=== PATIENT | male | born 1950 | race Caucasian/White ===

== ENCOUNTER → 2024-12-17 | Outpatient (CLI) | payer OTHER, SELFPAY ==
--- NOTE | 2024-12-17 16:30 | XR_ITS ---
MRI shoulder, right, without contrast. Date and time: December 17, 2024 1627 hours INDICATIONS: Right shoulder pain and decreased range of motion joint clicking 18 months after lifting injury Technique: Multiple axial, sagittal and coronal sections of the shoulder have been obtained. Siemens high-resolution 1.5 Alison MRI scanner is utilized. Axial fat-suppressed sections, TR 2350, TE 18 T2-weighted coronal fat-saturated images, TR 3500, TE 7100 T1-weighted coronal images, TR 500, TE 15 T2-weighted sagittal fat-saturated images, TR 3500, TE 57 T1-weighted sagittal sections, TR 504, TE 13. Findings: Supraspinatus tendon insertion is abnormal, 8 mm full-thickness tear. Infraspinatus tendon insertion is intact. Subscapularis insertion is intact. Subscapularis bursa is not seen. Long head of the biceps is in the bicipital groove. No definite tear of the biceps superior labral anchor is seen. Retraction of the musculotendinous junction of the rotator cuff is not significant. Tendinosis pattern is prominent. Distance between the acromium and humeral head is 7.9 mm Atrophy of the supraspinatus muscle is mild . Atrophy of the infraspinatus muscle is mild. Sagittal sections demonstrate a horizontal acromion. Acromioclavicular joint demonstrates moderate osteoarthritis. Osacromiale is not identified. Moderate osteoarthritis glenohumeral joint Fraying and irregularity anterior superior labral margins. Bony glenoid fossa on the sagittal sections does not demonstrate osseous defect. Occult fracture or area of avascular necrosis is not seen. Acromioclavicular joint separation is not visible. Defect in the posterolateral margin of the humeral head is not seen Impression: 8 mm full-thickness tear supraspinatus Prominent rotator cuff tendinosis Fraying and irregularity anterior superior labral margins
== END | disposition home or self-care (01) ==
PROVIDERS: PCP Family Medicine; Referring Provider Family Medicine; Visit Provider Family Medicine
DX: S46.011A Strain of muscle(s) and tendon(s) of the rotator cuff of right shoulder, initial encounter (principal); X58.XXXA Exposure to other specified factors, initial encounter; M67.813 Other specified disorders of tendon, right shoulder; M25.811 Other specified joint disorders, right shoulder
CPT/HCPCS: 73221

== ENCOUNTER → 2025-05-24 | Outpatient (CLI) | payer MEDICARE, SELFPAY ==
[2025-05-24 08:37] LABS: Basophils # (Auto) 0.1 Thou/mm3 (0.0-0.2); Basophils % (Auto) 1 % (0-2.5); Eosinophils # (Auto) 0.2 Thou/mm3 (0.0-0.5); Eosinophils % (Auto) 3 % (0-10); Hematocrit 46.7 % (41.0-53.0); Hemoglobin 15.5 g/dL (13.5-16.0); Immature Granulocytes Auto 0.02 Thou/mm3 (0.00-0.00); Lymphocytes # (Auto) 2.3 Thou/mm3 (1.0-4.8); Lymphocytes % (Auto) 28 % (10-50); Mean Corpuscular HGB Conc 33.2 g/dl (31.0-37.0); Mean Corpuscular Hemoglobin 30.2 pg (25.0-35.0); Mean Corpuscular Volume 91 fL (80-100); Monocytes # (Auto) 0.7 Thou/mm3 (0.0-0.8); Monocytes % (Auto) 9 % (0-12); Neutrophils # (Auto) 4.8 Thou/mm3 (1.8-7.7); Neutrophils % (Auto) 59 % (37-80); Nucleated Red Blood Cell # 0.00 Thou/mm3 (0.00-0.00); Nucleated Red Blood Cell % 0 /100 WBC (0); Platelet Count 164 Thou/mm3 (140-440); RDW Standard Deviation 45.1 fL (35.1-43.9); Red Blood Count 5.13 Miln/mm3 (4.50-5.90); White Blood Count 8.0 Thou/mm3 (3.8-10.6)
[2025-05-24 08:54] LABS: Prostate Specific Antigen 0.76 ng/mL (0-4.00)
[2025-05-24 08:55] LABS: Parathyroid Hormone Intact 91.7 pg/ml (18.5-88.0)
[2025-05-24 09:00] LABS: Vitamin B12 359 pg/mL (211-911); Vitamin D 25 Hydroxy Total 39.2 ng/mL (7.3-40.2)
[2025-05-24 09:04] LABS: Glucose Estimated Average 126 mg/dL (80-131); Hemoglobin A1C 6.0 % Hgb (4.8-6.0)
[2025-05-24 09:06] LABS: Alanine Aminotransferase 24 U/L (10-49); Albumin, Serum 4.7 gm/dL (3.4-4.8); Anion Gap 10 (7-16); Aspartate Amino Transferase 32 U/L (0-34); BUN/Creatinine Ratio 16 Ratio (12-20); Bilirubin,Total 0.5 mg/dL (0.3-1.2); Blood Urea Nitrogen 16 mg/dL (9-23); Calcium 9.9 mg/dL (8.3-10.6); Calcium (Corrected) 9.9 mg/dL (8.5-10.1); Carbon Dioxide 26.6 mMol/L (20.0-31.0); Chloride 106 mMol/L (98-107); Creatinine (Component) 1.0 mg/dL (0.6-1.3); Globulin 2.1 gm/dL (2.3-3.5); Glucose 103 mg/dL (74-106); Osmolality,Calculated 286 (275-295); Potassium 4.7 mMol/L (3.4-5.1); Sodium 143 mMol/L (136-145); Total Protein 6.8 gm/dL (5.7-8.2); eGFR > 60 See Note
[2025-05-24 09:07] LABS: Collection Type, Urine Clean Catch
[2025-05-24 09:07] LABS: Albumin/Globulin Ratio 2.2 (1.2-2.2); Alkaline Phosphatase 79 U/L (46-116); Cardiac Risk Estimate 6.0 RATIO (4.0-6.7); Cholesterol 222 mg/dL (132-200); HDL Cholesterol 37 mg/dL (40-60); LDL Cholesterol,Calculated 141 mg/dL (0-130); Thyroid Stimulating Hormone 3.60 uIU/mL (0.55-4.78); Triglycerides 218 mg/dL (30-150)
[2025-05-24 09:48] LABS: Bilirubin,Urine Negative (Negative); Blood,Urine Negative (Negative); Clarity,Urine Clear (Clear/Hazy); Color,Urine Lt-Yellow (Lt Yel-Yel); Culture Indicated,Urine Not Indicated; Glucose, Urine Negative (Negative); Ketones,Urine Negative (Negative); Leukocyte Esterase,Urine Negative (Negative); Nitrite,Urine Negative (Negative); PH,Urine 6.5 (5.0-7.0); Protein,Urine Negative (Neg - Trace); RBC,Urine 1 /hpf (0-3); Specific Gravity,Urine 1.020 (1.001-1.035); Squamous Epithelial Cell,Urine < 1 /hpf (0-5); Urobilinogen,Urine Negative mg/dL (0.0-1.0); WBC,Urine < 1 /hpf (0-5)
[2025-05-26 03:11] LABS: HCV RNA, PCR <15 NOT DETECTED IU/mL
[2025-05-30 08:54] LABS: HCV RNA, PCR Log IU <1.18 NOT DETECTED Log IU/mL
== END | disposition home or self-care (01) ==
LOC: COPL 07:51
PROVIDERS: PCP Family Medicine; Referring Provider Physician Assistant; Visit Provider Physician Assistant
DX: E78.5 Hyperlipidemia, unspecified (principal); E55.9 Vitamin D deficiency, unspecified; R73.01 Impaired fasting glucose; B19.20 Unspecified viral hepatitis C without hepatic coma; E21.3 Hyperparathyroidism, unspecified; D58.2 Other hemoglobinopathies; Z12.5 Encounter for screening for malignant neoplasm of prostate
CPT/HCPCS: 36415; 80053; 80061; 81001; 82306; 82607; 83036; 83970; 84153; 84443; 85025; 87522

== ENCOUNTER → 2025-05-26 | Outpatient (CLI) | payer MEDICARE, SELFPAY ==
[2025-05-31 06:54] LABS: Fecal Globin Result NOT DETECTED (NOT DETECTED)
== END | disposition home or self-care (01) ==
LOC: SLDO 12:55
PROVIDERS: Referring Provider Physician Assistant; Visit Provider Physician Assistant
DX: Z12.11 Encounter for screening for malignant neoplasm of colon (principal); E78.5 Hyperlipidemia, unspecified; E55.9 Vitamin D deficiency, unspecified; R73.01 Impaired fasting glucose; B19.20 Unspecified viral hepatitis C without hepatic coma; E21.3 Hyperparathyroidism, unspecified; D58.2 Other hemoglobinopathies
CPT/HCPCS: 82274; G0328

== ENCOUNTER → 2025-06-09 | Outpatient (CLI) | payer MEDICARE, SELFPAY ==
--- NOTE | 2025-06-09 12:40 | XR_ITS ---
Examination: Bone densitometry Date and time of exam:June 09, 2025 1240 hours INDICATIONS: 75-year-old male with diagnosis age related osteoporosis, family history, mother hip fracture Technique: Lumbar spine and hip total bone mineralization values of an calculated. Peak reference and age match control results have been displayed. Findings: Lumbar spine total bone mineralization is1.297 gm/cm2. This is 1.9 standard deviations below peak reference. This is 2.9 standard deviations below age-matched controls. Hip total bone mineralization is 0.988 gm/cm2 This is 0.3 standard deviations below peak reference. This is 0.5 standard deviations above age-matched controls Impression: There is normal mineralization based on lumbar spine measurements. There is normal mineralization based on hip measurements
== END | disposition home or self-care (01) ==
PROVIDERS: PCP Family Medicine; Referring Provider Physician Assistant; Visit Provider Physician Assistant
DX: Z13.820 Encounter for screening for osteoporosis (principal)
CPT/HCPCS: 77080

== ENCOUNTER 2025-07-18 10:30 | Day surgery (SDC) | payer MEDICARE, SELFPAY ==
--- NOTE | 2025-07-15 07:00 | EKG_ITS ---
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
[2025-07-15 10:20] LABS: Basophils # (Auto) 0.1 Thou/mm3 (0.0-0.2); Basophils % (Auto) 1 % (0-2.5); Eosinophils # (Auto) 0.1 Thou/mm3 (0.0-0.5); Eosinophils % (Auto) 2 % (0-10); Hematocrit 46.9 % (41.0-53.0); Hemoglobin 15.5 g/dL (13.5-16.0); Immature Granulocytes Auto 0.01 Thou/mm3 (0.00-0.00); Lymphocytes # (Auto) 2.3 Thou/mm3 (1.0-4.8); Lymphocytes % (Auto) 32 % (10-50); Mean Corpuscular HGB Conc 33.0 g/dl (31.0-37.0); Mean Corpuscular Hemoglobin 30.1 pg (25.0-35.0); Mean Corpuscular Volume 91 fL (80-100); Monocytes # (Auto) 0.8 Thou/mm3 (0.0-0.8); Monocytes % (Auto) 12 % (0-12); Neutrophils # (Auto) 3.9 Thou/mm3 (1.8-7.7); Neutrophils % (Auto) 53 % (37-80); Nucleated Red Blood Cell # 0.00 Thou/mm3 (0.00-0.00); Nucleated Red Blood Cell % 0 /100 WBC (0); Platelet Count 168 Thou/mm3 (140-440); RDW Standard Deviation 42.0 fL (35.1-43.9); Red Blood Count 5.15 Miln/mm3 (4.50-5.90); White Blood Count 7.3 Thou/mm3 (3.8-10.6)
[2025-07-15 10:28] LABS: INR 1.0 (0.9-1.3); Partial Thromboplastin Time 27.6 Seconds (22.0-36.0); Prothrombin Time 10.9 Seconds (9.0-12.2)
[2025-07-15 10:31] LABS: Anion Gap 9 (7-16); BUN/Creatinine Ratio 9 Ratio (12-20); Blood Urea Nitrogen 9 mg/dL (9-23); Calcium 9.4 mg/dL (8.3-10.6); Carbon Dioxide 27.4 mMol/L (20.0-31.0); Chloride 106 mMol/L (98-107); Creatinine (Component) 1.0 mg/dL (0.6-1.3); Glucose 102 mg/dL (74-106); Osmolality,Calculated 281 (275-295); Potassium 4.8 mMol/L (3.4-5.1); Sodium 142 mMol/L (136-145); eGFR > 60 See Note
[2025-07-18] VITALS (13 sets, daily range): BP systolic 128–164; BP diastolic 71–115; PULSE 56–67; RESP 16–20; TEMP 36.3–37; O2SAT 93–96; BMI 29.5
--- NOTE | 2025-07-18 14:11 | ESOP_ITS ---
Cardiac Cath Procedure Procedure Name DATE OF PROCEDURE: 07/18/25 PROCEDURE PERFORMED: 1. Successful complex PCI of the proximal OM 2 2.25 x 12 mm Bravo stent with excellent results and no residual stenosis or complications 2. Successful complex PCI of the mid LAD with a 2.0 x 12 mm Bravo stent and 2.5 x 18 mm Hendrix stent with excellent results and no residual stenosis or complications 3. Left heart cardiac catheterization including right, left coronary angiograms and left ventriculogram 4. Ultrasound-guided access of the right radial artery 5. Conscious sedation for 30 minutes [employer] CREWMEMBER: Linus Pritchett MD Procedure Narrative Procedure Narrative HISTORY AND INDICATIONS: 75M pmhx of GERD, PIPER on CPAP, HLD, hyperparathyroidism, hepatitis C (RNA undetectable 05/2025, came initially to my office for preoperative cardiac risk evaluation. Patient had ischemic cardiac work up done and Stress Echo with Treadmill showed abnormal stress test as per EKG criteria. Criteria met with greater than 1mm ST depressions, suggestive of ischemia in leads 2,3, aVf,v3,v4- v6, mild elevation in aVR. Patient was brought in for an elective cardiac catheterization. All the risk benefits and alternatives of left heart cardiac attrition were explained in detail including the risk of bleeding, heart attack, stroke and in detail. Patient agreeable for the procedure and provided the consent. H&P updated. DESCRIPTION OF PROCEDURE: The patient was brought to the cardiac catheterization lab analysis the precautions were followed. Patient was given 1 Mg of Versed and 50 mcg of fentanyl for moderate conscious sedation. 2 mL of lidocaine was given in the right wrist. The right radial artery was accessed via the ultrasound guidance as well as micropuncture technique. A 6 [place] glide sheath was introduced. We then used a 6 [place] TIG 4 catheter to perform the left coronary angiogram as well as a left ventriculogram which showed the following findings. An EBU 3.5 catheter was used to engage the left coronary artery. 1. Co-dominant circulation 2. Left main artery is a large artery without any Significant disease 2. LAD is a large size artery with 50-60% stenosis at proximal segment, and 90- 95% stenosis of mid segment with PHILIP III flow. Small diagonals without any significant disease. 3. LCx is a large size artery with mild difusse disease. OM1 is a medium artery with 50-60% stenosis of proximal segment, as well as OM 2 is a medium sized artery with 80% stenosis of proximal segment with PHILIP III flow. 4. RCA is large size artery gives rise to a medium RPDA and RPL without any significant disease. 5. LVEF is normal at 60 to 65% with normal LVEDP. There was no significant transvalvular aortic gradient INTERVENTION: A 6 [place] EBU 3.5 guide was used to engage the left coronary artery. Patient was given weight-based heparin and ACT was greater than 250 although the procedure. Run-through guidewire was used to cross the lesion in the proximal OM2 without any complications. A 2.0 X 12 mm semicompliant balloon was used for predilatation and was predilated multiple times at 6, 8 and 10 hua respectively. We then used 2.25 X 12 mm Bravo stent. The Hendrix stent was deployed at 12 and 14 hua for a total of 45 seconds. Excellent results achieved with PHILIP-3 flow and no other complications. The same run-through guidewire was used to cross the lesion in the mid LAD without any complications. A 2.0 X 12 mm semicompliant balloon was used for predilatation and was predilated multiple times at 6, 8 hua respectively. We then used 2.0 x 12 mm Bravo stent in the mid LAD and noted that there was still stenosis noted in the proximal portion and overlapped it with a 2.5 x 8 mm Hendrix JADA stent. Excellent results achieved with PHILIP-3 flow and no other complications. Final angiographic pictures were taken and all interventional equipment was removed. ACC data: Preprocedure:-mid LAD with 90 to 95% stenosis with PHILIP-3 flow Post procedure: mid LAD with 0% residual stenosis with PHILIP-3 flow ACC data: Preprocedure:- proximal OM2 with 80%% stenosis with PHILIP-3 flow Post procedure: proximal OM2 with 0% residual stenosis with PHILIP-3 flow Patient was already on aspirin and Brilinta which were continued. A radial band was used to achieve the hemostasis of the right radial artery access. 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 Complications: None Specimens: None Blood loss: Estimated 10 ML Summary/findings: 1. LHC showed severe CAD with 90-95% stenosis of mid LAD, 50-60% stenosis of proximal LAD, mild diffuse disease of LCx, 50-60% stenosis of OM1, 80% stenosis of proximal OM2. Rest of the LHC showed normal coronaries without any angiographically significant obstruction and few luminal irregularities. 2. LVEF was normal at 60 to 65% with LVEDP at 18 mmHg. No significant transvalvular aortic gradient noted. 3. Successful complex PCI of the proximal OM 2 2.25 x 12 mm Bravo stent with e xcellent results and no residual stenosis or complications 4. Successful complex PCI of the mid LAD with a 2.0 x 12 mm Hendrix stent and 2.5 x 18 mm Bravo stent with excellent results and no residual stenosis or complications Recommendations: 1. Recommended dual antiplatelet therapy with aspirin 81 mg once daily lifetime and Brilinta 90 mg twice daily for at least 1 year. High intensity statin and beta-blockers to be continued 2. Recommend aggressive risk factor modification 3. Patient recommended not to lift any weight more than 5 to 10 pounds for the next 7 days and follow-up with me in the office in 7 days. Linus Pritchett MD Interventional Cardiology.
[2025-07-18] MEDS: ACETAMINOPHEN 325 MG TABLET 650 MG PO (17:16)
[2025-07-20 09:11] LABS: ACT (CATH LAB ONLY) 345.0 Seconds (89-169)
== END 2025-07-18 18:03 | disposition home or self-care (01) ==
PROVIDERS: PCP Family Medicine; Referring Provider Internal Medicine Cardiovascular Disease; Visit Provider Internal Medicine Cardiovascular Disease
PROC: (CPT 93458; principal; 2025-07-18 11:30)
DX: I25.10 Atherosclerotic heart disease of native coronary artery without angina pectoris (principal); Z01.810 Encounter for preprocedural cardiovascular examination; R94.39 Abnormal result of other cardiovascular function study; G47.33 Obstructive sleep apnea (adult) (pediatric); E21.3 Hyperparathyroidism, unspecified; E78.2 Mixed hyperlipidemia; K21.9 Gastro-esophageal reflux disease without esophagitis; B19.20 Unspecified viral hepatitis C without hepatic coma
CPT/HCPCS: 93458; C9600 ×2; C9601; 36415; 80048; 85025; 85347; 85610; 85730; 93005; 99152; 99153; A4649; C1725; C1769; C1874; C1887; C1894; J0168; J0461; J1643; J2250; J2312; J2371; J3010; J3490; Q9967; A9270; J2305

== ENCOUNTER → 2025-09-01 | Outpatient (CLI) | payer MEDICARE, SELFPAY ==
[2025-09-01 09:36] LABS: Glucose Estimated Average 134 mg/dL (80-131); Hemoglobin A1C 6.3 % Hgb (4.8-6.0)
[2025-09-01 09:37] LABS: Alanine Aminotransferase 30 U/L (10-49); Albumin, Serum 5.1 gm/dL (3.4-4.8); Albumin/Globulin Ratio 1.9 (1.2-2.2); Alkaline Phosphatase 76 U/L (46-116); Anion Gap 11 (7-16); Aspartate Amino Transferase 35 U/L (0-34); BUN/Creatinine Ratio 15 Ratio (12-20); Bilirubin,Total 0.7 mg/dL (0.3-1.2); Blood Urea Nitrogen 15 mg/dL (9-23); Calcium 9.8 mg/dL (8.3-10.6); Calcium (Corrected) 9.8 mg/dL (8.5-10.1); Carbon Dioxide 26.3 mMol/L (20.0-31.0); Cardiac Risk Estimate 4.3 RATIO (4.0-6.7); Chloride 105 mMol/L (98-107); Cholesterol 173 mg/dL (132-200); Creatinine (Component) 1.0 mg/dL (0.6-1.3); Globulin 2.7 gm/dL (2.3-3.5); Glucose 112 mg/dL (74-106); HDL Cholesterol 40 mg/dL (40-60); LDL Cholesterol,Calculated 94 mg/dL (0-130); Osmolality,Calculated 284 (275-295); Potassium 4.4 mMol/L (3.4-5.1); Sodium 142 mMol/L (136-145); Total Protein 7.8 gm/dL (5.7-8.2); Triglycerides 194 mg/dL (30-150); eGFR > 60 See Note
== END | disposition home or self-care (01) ==
LOC: COPL 08:20
PROVIDERS: PCP Family Medicine; Referring Provider Physician Assistant; Visit Provider Physician Assistant
DX: E78.5 Hyperlipidemia, unspecified (principal); R73.01 Impaired fasting glucose
CPT/HCPCS: 36415; 80053; 80061; 83036